=== PATIENT | male | born 2000 | race Caucasian/White ===

== ENCOUNTER 2019-02-05 18:06 | Emergency (ER) | payer OTHER ==
[~2019-02-05] VITALS: Ht 177.8 cm; Wt 86.2 kg
[~2019-02-05 18:06] MED LIST: ALBUTEROL0.09 MG/A2 IH; CLARITIN5 MG/5 ML PO
[2019-02-05 18:07] VITALS: BP 107/64
== END 2019-02-05 20:10 | disposition home or self-care (01) ==
LOC: ED 18:06
DX: T15.01XA Foreign body in cornea, right eye, initial encounter (principal); Z79.899 Other long term (current) drug therapy; X58.XXXA Exposure to other specified factors, initial encounter; Y93.89 Activity, other specified; Y92.89 Other specified places as the place of occurrence of the external cause; Y99.0 Civilian activity done for income or pay

== ENCOUNTER 2019-04-24 08:05 | Emergency (ER) | payer OTHER ==
[~2019-04-24] VITALS: Ht 177.8 cm; Wt 86.2 kg
[2019-04-24 08:08] VITALS: BP 114/57
== END 2019-04-24 09:18 | disposition home or self-care (01) ==
LOC: ED 08:05
DX: K59.00 Constipation, unspecified (principal); Z79.899 Other long term (current) drug therapy

== ENCOUNTER 2019-12-27 11:44 | Inpatient (IN) | payer BC ==
[~2019-12-27] VITALS: Ht 177.8 cm; Wt 84.9 kg
[2019-12-27 11:49] VITALS: BP 129/79
[2019-12-27 12:39] LABS: BASO # 0.1 10*3/uL (0.0-0.1); BASO % 0.4 % (0.0-1.0); EOS # 0.1 10*3/uL (0.0-0.4); EOS % 0.7 % (1.0-4.0); HEMATOCRIT 45.1 % (42.0-52.0); LYMPH # 2.6 10*3/uL (1.3-4.4); LYMPH % 17.1 % (27.0-41.0); MEAN CELL VOLUME 83.1 fl (80.0-94.0); MEAN CORPUSCULAR HGB 28.5 pg (27.0-31.0); MEAN CORPUSCULAR HGB CONC 34.4 g/dl (33.0-37.0); MEAN PLATELET VOLUME 10.4 fl (9.6-12.3); MONO # 1.2 10*3/uL (0.1-1.0); MONO % 7.8 % (3.0-9.0); NEUT # 11.4 10*3/uL (2.3-7.9); NEUT % 73.6 % (47.0-73.0); PLATELET COUNT AUTOMATED 220 10*3/uL (130-400); RED BLOOD COUNT 5.43 10*6/uL (4.50-5.90); RED CELL DISTRI WIDTH 12.6 % (0-14.5); WHITE BLOOD COUNT 15.5 10*3/uL (4.8-10.8)
[2019-12-27 12:43] LABS: COLOR YELLOW (YELLOW)
[2019-12-27 12:44] LABS: BILIRUBIN NEGATIVE (NEGATIVE); BLOOD TRACE-INTACT (NEGATIVE); CLARITY SL CLOUDY (CLEAR); GLUCOSE NEGATIVE (NEGATIVE); KETONE TRACE (NEGATIVE); LEUKO ESTERASE 1+ (NEGATIVE); MUCOUS 2+; NITRITE NEGATIVE (NEGATIVE); UROBILINOGEN 0.2 E.U./dl (0.2-1.0); WBC 51-100 wbc/hpf (0-5)
[2019-12-27 12:54] LABS: ALBUMIN 4.3 gm/dl (3.1-4.5); ALKALINE PHOSPHATASE 52 U/L (45-117); BUN 18 mg/dl (7-24); CHLORIDE 106 mmol/L (98-107); CREATININE 1.01 mg/dL (0.70-1.30); LIPASE 94 U/L (73-393); POTASSIUM 3.1 mmol/L (3.5-5.1); SGOT/AST 21 IU/L (3-35); SGPT/ALT 24 U/L (12-78); SODIUM 139 mmol/L (136-145); TOTAL PROTEIN 7.6 gm/dL (6.4-8.2)
--- NOTE | 2019-12-27 14:30 | NUR ---
NOTIFIED SHAHANA OF PATIENT HAVING PAIN AND STILL NAUSEATED. EMESIS X3 SINCE LAST ZOFRAN GIVEN.
--- NOTE | 2019-12-27 15:16 | NUR ---
PATIENT MEDICATED AND URINAL REQUESTED AND GIVEN TO PATIENT.
[2019-12-27 16:00] VITALS: BP 112/62
--- NOTE | 2019-12-27 16:50 | NUR ---
PATIENT TAKEN TO 5TH FLOOR AND MEDICATED WITH REGLAN AND BENADRYL PRIOR TO TAKING TO FLOOR. BEDSIDE REPORT GIVEN TO SPENCER MOHAMUD.
[2019-12-27 17:00] VITALS: BP 112/62
--- NOTE | 2019-12-27 17:00 | NUR ---
A 19, admitted to , under the services of ASHLEY Hernandes DO with a diagnosis of GASTROENTERITIS. Chief complaint is MULTIPLE EMESIS IN 24 HOURS. Patient arrived via stretcher from ER. Monitor applied. Initial assessment completed. Vital signs taken and recorded. ASHLEY HERNANDES DO notified of admission to the unit. Orders received. See assessment for past medical history, medications and allergies. Patient and/or family oriented to unit. [facility] reviewed. Clothing/patient valuable form completed. BALTAZAR
--- NOTE | 2019-12-27 17:17 | NUR ---
PATIENT UPON GOING TO 4E LOOKED AND STARTED TO FEEL BETTER. AMBULATED FROM COT TO BED WITH NO DIFFICULTY. STATED THAT HE FELT BETTER.
--- NOTE | 2019-12-27 17:43 | NUR ---
PATIENT REFUSED TO LOCK UP 1125.00 DOLLARS THAT IS IN HIS POCKET.
[2019-12-27 20:00] VITALS: BP 105/46
--- NOTE | 2019-12-27 20:32 | NUR ---
PRN PHENERGAN GIVEN FOR PT COMPLAINTS OF NAUSEA COMING BACK. ALSO REQUESTING ELLY SHIV AND SALTINE CRACKERS. CALL LIGHT WITHIN REACH, WILL MONITOR
--- NOTE | 2019-12-27 22:02 | NUR ---
PATIENT STATES PHENERGAN EFFECTIVE
--- NOTE | 2019-12-27 23:17 | NUR ---
IV SITE OCCLUDED IN LEFT AC. NEW IV RESTARTED IN THE LEFT ARM #22 GAUGE. ZOFRAN GIVEN AND IV FLUIDS RESSUMED
[2019-12-28] VITALS: BP 119/74
--- NOTE | 2019-12-28 00:23 | NUR ---
SPOKE WITH DR. GARDUNO AT THIS TIME. PATIENT THROWING UP SMALL AMMOUNTS OF STOMACH ACID AT THIS TIME. ZOFRAN ALREADY GIVEN AND PHENERGAN NOT DUE UNTIL 0230. ORDERS RECIEVED FOR 25MG IV BENADRYL AND TO SLOW THE PATIENTS FLUIDS DOWN TO 100ML/HR
--- NOTE | 2019-12-28 01:00 | NUR ---
PATIENT STATES BENADRYL MINIMALLY EFFECTIVE FOR NAUSEA/VOMITING
--- NOTE | 2019-12-28 01:25 | NUR ---
PATIENT STATES HE ISN'T THROUGH UP ANYMORE BUT IS STILL VERY NAUSEATED.
--- NOTE | 2019-12-28 01:31 | NUR ---
OK FROM DR. GARDUNO TO GIVE PATIENT PHENERGAN AN HOUR EARLY
--- NOTE | 2019-12-28 01:38 | NUR ---
PRN PHENERGAN GIVEN FOR PT COMPLAINTS OF CONTINUED NAUSEA/VOMITING DESPITE BENADRYL. CALL LIGHT WITHIN REACH, WILL MONITOR
--- NOTE | 2019-12-28 01:58 | NUR ---
ENCOURAGED PATIENT TO ELEVATED THE HEAD OF HIS BED FOR NAUSEA.
--- NOTE | 2019-12-28 02:40 | NUR ---
PATIENT SLEEPING IN BED. HEAD OF BED ELEVATED. CALL LIGHT WITHIN REACH, WILL MONITOR
[2019-12-28 06:49] LABS: BASO % 0.2 % (0.0-1.0); HEMATOCRIT 42.5 % (42.0-52.0); LYMPH # 1.2 10*3/uL (1.3-4.4); LYMPH % 10.7 % (27.0-41.0); MEAN CELL VOLUME 84.3 fl (80.0-94.0); MEAN CORPUSCULAR HGB 28.6 pg (27.0-31.0); MEAN CORPUSCULAR HGB CONC 33.9 g/dl (33.0-37.0); MEAN PLATELET VOLUME 11.2 fl (9.6-12.3); MONO # 0.7 10*3/uL (0.1-1.0); MONO % 6.1 % (3.0-9.0); NEUT # 9.5 10*3/uL (2.3-7.9); NEUT % 82.7 % (47.0-73.0); PLATELET COUNT AUTOMATED 221 10*3/uL (130-400); RED BLOOD COUNT 5.04 10*6/uL (4.50-5.90); RED CELL DISTRI WIDTH 12.5 % (0-14.5); WHITE BLOOD COUNT 11.5 10*3/uL (4.8-10.8)
[2019-12-28 07:20] LABS: ALBUMIN 3.6 gm/dl (3.1-4.5); BUN 9 mg/dl (7-24); CHLORIDE 109 mmol/L (98-107); CREATININE 0.83 mg/dL (0.70-1.30); POTASSIUM 3.6 mmol/L (3.5-5.1); SGOT/AST 18 IU/L (3-35); SGPT/ALT 23 U/L (12-78); SODIUM 141 mmol/L (136-145); TOTAL PROTEIN 6.8 gm/dL (6.4-8.2)
[2019-12-28 07:27] LABS: ALKALINE PHOSPHATASE 47 U/L (45-117); FREE T4 1.07 ng/dl (0.76-1.46)
[2019-12-28 08:00] VITALS: BP 108/71
--- NOTE | 2019-12-28 08:00 | NUR ---
PATIENT FEELS MUCH BETTER AND IS WAITING ON HIS PANCAKES AND WEBB.
--- NOTE | 2019-12-28 10:00 | NUR ---
PATIENT IS HAVING EMESIS.
--- NOTE | 2019-12-28 10:46 | NUR ---
GAVE AMALIA EARLY. DR. MADAY WALLACE.
--- NOTE | 2019-12-28 11:47 | NUR ---
ZOFRAN DIDN'T HELP, MEDICATED WITH PRN PHENERGAN PER ORDER AND REQUEST.
--- NOTE | 2019-12-28 11:56 | NUR ---
Medical Practitioners in to talk to patient. Patient states lives at HOME with ROOM MATE. There are FEW steps in the home. Physician: NONE Pharmacy: [facility] Home health services: NONE Patient's level of ADLs: INDEPENDENT Patient has working utilities: YES DME: NONE Follow-up physician's appointment after d/c: WILL FIND ONE AND FOLLOW UP Does patient want to access PORTAL?: NO Discharge plan PT LIVES AT HOME, STATES ALONE BUT THEN STATES I HAVE A ROOM MATE. DENIES THAT HE WILL HAVE ANY NEEDS ON DISCHARGE. PLAN IS TO RETURN HOME WHEN MEDICALLY STABLE. WILL CONTINUE TO FOLLOW. STATES HE WILL HAVE A RIDE HOME ON DISCHARGE.. EVA MCLEAN
[2019-12-28 12:00] VITALS: BP 112/76
--- NOTE | 2019-12-28 12:30 | NUR ---
PHENERGAN HELPED PATIENT.
--- NOTE | 2019-12-28 15:06 | NUR ---
MEDICATED WITH ANOTHER DOSE 12.5 PHENERGAN.
[2019-12-28 16:00] VITALS: BP 121/69
--- NOTE | 2019-12-28 19:12 | NUR ---
PATIENT IS RESTING NO EMESIS SINCE EARLY THIS AFTERNOON.
[2019-12-28 20:00] VITALS: BP 98/49
[2019-12-29] VITALS: BP 100/65
--- NOTE | 2019-12-29 00:18 | NUR ---
PATIENT MEDICATED WITH PHENERGAN FOR COMPLAINTS OF GI UPSET. WILL MONITOR FOR EFFECTIVENESS. CALL LIGHT IN REACH.
--- NOTE | 2019-12-29 00:37 | NUR ---
PATIENT STATED HE IS FEELING MUCH BETTER ALREADY FROM THE PHENERGAN. SAID IT WORK QUICK ON HIM AND IS MUCH BETTER THAN THE ZOFRAN. WILL CONTINUE TO MONITOR. CALL LIGHT IN REACH.
[2019-12-29 06:06] LABS: BUN 7 mg/dl (7-24); CHLORIDE 108 mmol/L (98-107); CREATININE 0.82 mg/dL (0.70-1.30); POTASSIUM 3.1 mmol/L (3.5-5.1); SODIUM 143 mmol/L (136-145)
[2019-12-29 08:00] VITALS: BP 116/65
--- NOTE | 2019-12-29 11:47 | NUR ---
PATIENT ORDERED MUFFIN AND CEREAL FOR LUNCH.
[2019-12-29 12:00] VITALS: BP 104/65
--- NOTE | 2019-12-29 12:23 | NUR ---
PT CONTINUES TO DENY NEEDS AT HOME. WILL CONTINUE TO FOLLOW.
--- NOTE | 2019-12-29 12:47 | NUR ---
PATIENT ATE 2 COOKIES, 1 MUFFIN, CRACKERS AND FEW BITES OF YOGURT FOR LUNCH, REPORTS NO PAIN OR NAUSEA WITH THE MEAL. DR. NORMAN NOTIFIED OF THIS.
[2019-12-29] MEDS ORDERED: ZOFRAN4 MG PO (13:15)
--- NOTE | 2019-12-29 13:31 | NUR ---
Discharge instructions reviewed with patient. Patient receptive and verbalizes understanding. Follow-up care arranged. Written instructions given to patient. PATIENT DISCHARGED TO [facility], AMBULATORY, FOR TRANSPORT HOME BY PRIVATE VEHICLE. ALEXANDRA RANDLE
== END 2019-12-29 13:31 | disposition home or self-care (01) | DRG 392 ==
LOC: ED 11:44 → 4E 15:28 → EDHOLD 15:28 → 5E 15:47 → 4E 15:50
PROVIDERS: Hospitalist; Internal Medicine; Physician Assistant; ADMIT Family Medicine
DX: K52.9 Noninfective gastroenteritis and colitis, unspecified (principal); E87.6 Hypokalemia; K59.00 Constipation, unspecified; R00.1 Bradycardia, unspecified; F12.10 Cannabis abuse, uncomplicated; J30.2 Other seasonal allergic rhinitis; D72.829 Elevated white blood cell count, unspecified; Z20.2 Contact with and (suspected) exposure to infections with a predominantly sexual mode of transmission; F17.210 Nicotine dependence, cigarettes, uncomplicated; Z71.6 Tobacco abuse counseling; Z83.3 Family history of diabetes mellitus; Z88.1 Allergy status to other antibiotic agents

== ENCOUNTER 2020-04-25 14:34 | Inpatient (IN) | payer SELFPAY ==
[~2020-04-25] VITALS: Ht 177.8 cm; Wt 75.1 kg
[~2020-04-25 14:34] MED LIST changes: +ZOFRAN4 MG PO
[2020-04-25 14:47] VITALS: BP 124/64
[2020-04-25 15:35] LABS: BASO # 0.1 10*3/uL (0.0-0.1); BASO % 0.3 % (0.0-1.0); EOS % 0.1 % (1.0-4.0); HEMATOCRIT 47.9 % (42.0-52.0); LYMPH # 1.4 10*3/uL (1.3-4.4); LYMPH % 6.5 % (27.0-41.0); MEAN CELL VOLUME 82.4 fl (80.0-94.0); MEAN CORPUSCULAR HGB 28.6 pg (27.0-31.0); MEAN CORPUSCULAR HGB CONC 34.7 g/dl (33.0-37.0); MEAN PLATELET VOLUME 10.9 fl (9.6-12.3); MONO % 4.6 % (3.0-9.0); NEUT # 18.7 10*3/uL (2.3-7.9); NEUT % 87.9 % (47.0-73.0); PLATELET COUNT AUTOMATED 308 10*3/uL (130-400); RED BLOOD COUNT 5.81 10*6/uL (4.50-5.90); RED CELL DISTRI WIDTH 12.1 % (0-14.5); WHITE BLOOD COUNT 21.3 10*3/uL (4.8-10.8)
[2020-04-25 16:32] LABS: ALBUMIN 4.3 gm/dl (3.1-4.5); ALKALINE PHOSPHATASE 60 U/L (45-117); BUN 15 mg/dl (7-24); CHLORIDE 109 mmol/L (98-107); CREATININE 0.89 mg/dL (0.70-1.30); POTASSIUM 3.8 mmol/L (3.5-5.1); SGOT/AST 15 IU/L (3-35); SGPT/ALT 18 U/L (12-78); SODIUM 142 mmol/L (136-145)
--- NOTE | 2020-04-25 16:36 | NUR ---
PT TO CT
--- NOTE | 2020-04-25 16:53 | NUR ---
PT REMAINS NAUSEATED PT TRIED 2 SIPS OF APPLE JUICE AND VOMITIED SHORTLY AFTERWARD PT THEN SPOKE WITH RESIDENTS
--- NOTE | 2020-04-25 17:08 | NUR ---
CRITICAL LAB 2.7 DR QUEEN NOTIFIED
--- NOTE | 2020-04-25 17:12 | NUR ---
PT STATES HE HAS NO WOUNDS OR OPEN SORES
--- NOTE | 2020-04-25 17:14 | NUR ---
PT NOW SLEEPING IN ROOM RESP EASY NO SIGN OF VOMITINING OR DISTRESS BED IN LOWEST POSITION BED RAILS UP X 2 CALL LIGHT IN REACH
[2020-04-25 17:54] VITALS: BP 117/68
[2020-04-25 18:35] VITALS: BP 114/62
--- NOTE | 2020-04-25 18:51 | NUR ---
PT DRANK SMALL AMOUNT OF APPLE JUICE PT DENIES ANY NAUSEA OR VOMITING AT THIS TIME
[2020-04-25 19:56] VITALS: BP 109/67
--- NOTE | 2020-04-25 19:56 | NUR ---
Time: 1855 A 19 year old MALE admitted to 4E under services of JOYCE JUAREZ DO. Pt. arrived via wheel chair from ER. Chief complaint: N/V. DAMION BELTRAN
[2020-04-25] MEDS ORDERED: LORADAMED10 MG PO (20:05)
--- NOTE | 2020-04-25 20:11 | NUR ---
MED REC UP TO DATE PER PT RECALL. PT ALERT & ORIENTED X3.
--- NOTE | 2020-04-25 20:20 | NUR ---
INFORMED HOME MEDS ARE VERIFIED. STATES [facility] [employer] ONLY. INFORMED THAT MAG-OX IS PO, PATIENT IS NPO AT THIS TIME. STATES SHE WILL CAHNGE ORDER TO IV.
--- NOTE | 2020-04-25 20:20 | NUR ---
PATIENT MEDICATED WITH PHENERGAN FOR NAUSEA AND DRY HEAVES. WILL MONITOR
[2020-04-26] VITALS: BP 97/54
[2020-04-26 06:07] LABS: URINE AMPHETAMINES < 1000 (1000ng/ml); URINE BARBITURATES < 200 (200ng/ml); URINE BENZODIAZEPINES < 200 (200ng/ml); URINE CANNABINOIDS (THC) > 50 (50ng/ml); URINE COCAINE < 300 (300ng/ml); URINE METHADONE < 300 (300ng/ml); URINE OPIATES < 300 (300ng/ml)
[2020-04-26 06:12] LABS: URINE PHENCYCLIDINE < 25 (25ng/ml)
[2020-04-26 07:13] LABS: HEMATOCRIT 41.1 % (42.0-52.0); MEAN CELL VOLUME 84.7 fl (80.0-94.0); MEAN CORPUSCULAR HGB 28.2 pg (27.0-31.0); MEAN CORPUSCULAR HGB CONC 33.3 g/dl (33.0-37.0); MEAN PLATELET VOLUME 11.3 fl (9.6-12.3); PLATELET COUNT AUTOMATED 240 10*3/uL (130-400); RED BLOOD COUNT 4.85 10*6/uL (4.50-5.90); RED CELL DISTRI WIDTH 12.2 % (0-14.5); WHITE BLOOD COUNT 15.6 10*3/uL (4.8-10.8)
[2020-04-26 07:35] LABS: ALBUMIN 3.8 gm/dl (3.1-4.5); BUN 13 mg/dl (7-24); CHLORIDE 108 mmol/L (98-107); POTASSIUM 3.5 mmol/L (3.5-5.1); SGOT/AST 11 IU/L (3-35); SODIUM 141 mmol/L (136-145)
[2020-04-26 07:36] LABS: ALKALINE PHOSPHATASE 55 U/L (45-117); SGPT/ALT 14 U/L (12-78); TOTAL PROTEIN 7.2 gm/dL (6.4-8.2)
[2020-04-26 07:38] LABS: ACT PARTIAL THROMBO TIME 28.6 SECONDS (20.0-32.1); INTERNATIONAL NORM RATIO 1.1 (2.0-3.5)
[2020-04-26 07:50] LABS: BASOPHILS 1 % (0-1); TOTAL CELLS COUNTED 100 #CELLS
--- NOTE | 2020-04-26 07:50 | NUR ---
24 HR chart check completed.
[2020-04-26 07:51] LABS: ACANTHOCYTES FEW; PLATELET SUFFICIENCY NORMAL (NORMAL)
[2020-04-26 08:00] VITALS: BP 110/72
--- NOTE | 2020-04-26 08:00 | NUR ---
Patient resting quietly with no c/o discomfort. Respirations easy and regular. Vital signs stable. No overt distress. DENIES PREVIOUS ASSOCIATION WITH THC USE AND N/V. ELEONORA MCMANUS
--- NOTE | 2020-04-26 09:00 | NUR ---
Paper Reel Operator in to talk to patient. Patient states lives at home with family. There are 3 steps in the home. Physician: none at present [facility]acy: [facility] Home health services: none Patient's level of ADLs: INDEPENDENT Patient has working utilities: all working DME: none Follow-up physician's appointment after d/c: will be made by hospitalist nurse director with doctor that patient chooses Does patient want to access PORTAL?: no Discharge plan discussed with patient, he lives at home, is independent in adls and ambulation, he states he will return home when discharged and denies any home needs, also discussed with him not having any insurance and someone from [employer] will see him and help fill out paperwork for the hospital stay, case management will follow. LINETTE GÓMEZ
[2020-04-26 12:00] VITALS: BP 112/70
--- NOTE | 2020-04-26 12:00 | NUR ---
Patient resting quietly with no c/o discomfort. Respirations easy and regular. Vital signs stable. No overt distress. ELEONORA MCMANUS
[2020-04-26] MEDS ORDERED: FLAGYL250 MG PO (15:32)
[2020-04-26] MEDS ORDERED: CIPRO250 MG PO (15:32)
[2020-04-26] MEDS ORDERED: ZOFRAN4 MG PO (15:32)
--- NOTE | 2020-04-26 16:10 | NUR ---
LEAVING AMBULATORY IN CARE OF SELF.
== END 2020-04-26 16:59 | disposition home or self-care (01) | DRG 392 ==
LOC: ED 14:34 → EDHOLD 18:15 → 4E 18:33
PROVIDERS: Emergency Medicine; Internal Medicine; ADMIT Internal Medicine; ATTEND Internal Medicine
DX: K52.9 Noninfective gastroenteritis and colitis, unspecified (principal); E87.2 Acidosis; E87.8 Other disorders of electrolyte and fluid balance, not elsewhere classified; R73.9 Hyperglycemia, unspecified; E83.42 Hypomagnesemia; D72.829 Elevated white blood cell count, unspecified; Z71.6 Tobacco abuse counseling; Z88.1 Allergy status to other antibiotic agents; F17.210 Nicotine dependence, cigarettes, uncomplicated; Z79.899 Other long term (current) drug therapy; Z53.29 Procedure and treatment not carried out because of patient's decision for other reasons; R07.89 Other chest pain